=== PATIENT | female | born 1980 | race Two or more races ===

== ENCOUNTER 2019-02-28 09:44 | Emergency (ER) | payer OTHER ==
[~2019-02-28] VITALS: Ht 172.7 cm; Wt 104.8 kg
--- NOTE | 2019-02-28 09:50 | NUR ---
[id number] FOR WITNESSED SYNCOPE WHILE BEING DRAWN BLOOD. PATIENT A/OX4, BREATHING EVEN AND UNLABORED, NO SOB NOTED. NEEDS ATTENDED.
--- NOTE | 2019-02-28 10:38 | NUR ---
[facility] CALLED. ETA [id number]
--- NOTE | 2019-02-28 11:31 | NUR ---
REPORT GIVEN TO LUIS A CHEUNG BY DR. PARK. RECEIVED AN OK FROM GRIFFIN BAER INTAKE FROM [facility]. PATIENT A/OX4, BREATHING EVEN AND UNLABORED, NO SOB NOTED, VITALS STABLE. IV removed. Catheter intact and site benign. Pressure and 4x4 applied to site. No bleeding noted.Patient discharged back to the facility in stable condition. Written and verbal after care instructions given. Patient verbalizes understanding of instruction. Report given to [employer].
[2019-02-28 11:32] VITALS: BP 139/68
== END 2019-02-28 11:32 | disposition home or self-care (01) ==
LOC: ER 09:44
DX: R55 Syncope and collapse (principal); I10 Essential (primary) hypertension; J45.909 Unspecified asthma, uncomplicated